=== PATIENT | female | born 1965 | race Caucasian/White ===

== ENCOUNTER 2017-09-01 09:53 | Observation (INO) | payer OTHER ==
[~2017-09-01] VITALS: Ht 157.5 cm; Wt 57.2 kg
[~2017-09-01 09:53] MED LIST: ALENDRONATE35 MG PO; ALPRAZOLAM PO; ALPRAZOLAM0.5 MG PO; CIPRODEX1 ML OT; FLUOXETINE20 MG PO; NAPROSYN500 MG PO; NITROGLYCER0.4 MG SL; NITROQUICK0.3 MG SL; PREMPRO1 TA2 PO; RYBIX ODT50 MG PO; TRAZODONE50 MG PO; ZOLOFT25 MG
[2017-09-01 11:01] LABS: HEMATOCRIT 44.8 % (37.0-47.0); HEMOGLOBIN 15.2 g/dl (12.0-16.0); IMMATURE GRANULOCYTES 0.2 % (0.0-1.0); MEAN CELL VOLUME 98.2 fL CALC (80.0-100.0); MEAN CORPUSCULAR HGB 33.3 pG CALC (26.0-32.0); MEAN CORPUSCULAR HGB CONC 33.9 g/L CALC (32.0-36.0); NEUT# 3.06 thou/uL (2.00-7.15); RED BLOOD COUNT 4.56 mill/uL (4.20-5.60); RED CELL DISTRI WIDTH 12.1 % (11.5-15.5)
[2017-09-01 11:26] LABS: ANION GAP 15 (6-22 (CALC)); BUN 10 mg/dL (7-17); BUN/CREATININE RATIO 11 (12-20 (CALC)); CALCIUM 10.1 mg/dL (8.4-10.2); CARBON DIOXIDE 27 mmol/l (22-30); CHLORIDE 104 mmol/l (95-108); CREATININE 0.9 mg/dL (0.5-1.0); GFR > 60 ML/MIN (>=60 (CALC)); GFR FOR AFR.AMER. > 60 ML/MIN (>=60 (CALC)); GLUCOSE 82 mg/dL (65-105); POTASSIUM 4.4 mmol/l (3.5-5.1); SODIUM 142 mmol/l (137-146)
[2017-09-01 11:57] LABS: CHOLESTEROL HDL RATIO 2.9 (<4.4 (CALC))
[2017-09-01 12:27] LABS: BARBITURATES NEGATIVE (NEGATIVE); COCAINE POSITIVE (NEGATIVE); METHADONE NEGATIVE (NEGATIVE); OXCYCODONE NEGATIVE (NEGATIVE); TETRAHYDROCANNABIONOL NEGATIVE (NEGATIVE); TRICYLIC ANTIDEPRESSANTS NEGATIVE (NEGATIVE)
[2017-09-01 14:38] VITALS: BP 123/76
[2017-09-01 14:45] VITALS: BP 130/75
[2017-09-01 19:15] VITALS: BP 96/62
[2017-09-02 00:10] VITALS: BP 100/64
[2017-09-02 04:41] VITALS: BP 127/79
[2017-09-02 08:56] VITALS: BP 97/63
== END 2017-09-02 11:56 | disposition home or self-care (01) | DRG 313 ==
LOC: ED 09:53 → ED-I 12:12 → ED 12:26 → MS2 12:27
PROVIDERS: Family Medicine; ADMIT Internal Medicine; ATTEND Internal Medicine
DX: R07.89 Other chest pain (principal); F32.9 Major depressive disorder, single episode, unspecified; F41.9 Anxiety disorder, unspecified; F17.210 Nicotine dependence, cigarettes, uncomplicated; F14.10 Cocaine abuse, uncomplicated
CPT/HCPCS: G0378